=== PATIENT | female | born 1975 | race Caucasian/White ===

== ENCOUNTER 2019-07-21 04:20 | Observation (INO) | payer OTHER ==
[2019-07-21] MEDS ORDERED: HYDROCODONE/APAP 5/325 MG TAB ONE (05:11)
[2019-07-21] MEDS ORDERED: KETOROLAC 30 MG/ML INJ ONE (05:11)
[2019-07-21 07:45] LABS: Absolute Lymphocytes (CBC) 1.6 K/uL (0.7-4.9); Basophils % 0.8 % (0-1.3); Hematocrit 38.2 % (36.0-45.0); Lymphocytes % 12.8 % (15.3-44.8); MPV 9.2 fL (7.6-11.3); RBC Red Blood Cell Count 4.29 M/uL (3.86-4.86)
[2019-07-21 07:49] LABS: Protime INR 0.95
[2019-07-21 08:00] LABS: Albumin 3.7 g/dL (3.4-5.0); Bilirubin Total 0.2 mg/dL (0.2-1.0); Potassium 4.1 mmol/L (3.5-5.1); Protein, Total 7.6 g/dL (6.4-8.2)
--- NOTE | 2019-07-21 08:27 | RAD REPORT ---
EXAM DESCRIPTION: CT - Abdomen Pelvis W Contrast - 07/21/2019 8:12 am CLINICAL HISTORY: TRAUMA, fall with back and abdomen pain COMPARISON: Chest Abd Pelvis Wo Con dated 07/21/2019 TECHNIQUE: Biphasic, helical CT imaging of the abdomen and pelvis was performed following 100 ml non -ionic IV contrast. No oral contrast administered. All CT scans are performed using dose optimization technique as appropriate and may include automated exposure control or mA/KV adjustment according to patient size. FINDINGS: No suspicious findings in the lung bases. The liver, spleen, and pancreas show no suspicious findings. Gallbladder and biliary tree are also wi thout suspicious finding. Between the diaphragm and the posterior right lateral margin of the liver there is a 6 x 3 centimeter low-density collection. This has mild mass effect on the liver. Calcification is seen along the rim of this low-density collection along the medial and inferior margin. This is homogeneous low-attenuat ion. No enhancement component is seen. This low-density mass appears more associated with the diaphra gm in the liver parenchyma. This may be an old seroma or hematoma. There is some questionable deformi ty to the anterior margins of the right tenth and eleventh ribs in proximity to this collection. Jarod elation is needed with any history of old rib rib injury in this region. A malignant or aggressive ma ss is not suspected. Symmetric renal function is seen with no hydronephrosis or suspicious renal mass. No pyelonephritis o r acute parenchymal process. No bladder abnormalities. No adrenal abnormalities. Uterus and ovaries s how no suspicious findings. No dilated bowel loops or bowel wall thickening. No free air, free fluid or inflammatory stranding. No hernia, mass or bulky lymphadenopathy. No suspicious bony findings. IMPRESSION: A 6 x 3 centimeter low-density mass is present between the diaphragm in the posterolater al margin of the liver. An old hematoma or seroma is the favored etiology. A malignant or aggressive process is not suspected. Abscess is not suspected. There is some subtle deformity to the anterior margin of the right tenth and eleventh ribs that may b e old fracture change. This would support a seroma/hematoma etiology. Correlation can be made with hi story. No other acute or significant findings on this examination. Long-term significance of the low-density mass near the liver doubtful. Correlation can be made with any prior imaging studies. Repeat imaging in 4-6 months could be performed if there are ongoing clini pooja concerns.
--- NOTE | 2019-07-21 10:27 | EDPHYS ---
Physician Documentation [facility] Name: Enma Clark Age: 44 yrs Sex: Female : 1975 Arrival Date: 07/21/2019 Time: 04:22 Bed 3 Private MD: ED Physician Scott Mead HPI: 07/20 05:57 This 44 yrs old Female presents to ER via Wheelchair with complaints of Fall tw4 Injury, Back Pain. 05:57 Details of fall: The patient fell from an upright position, while standing. Onset: The tw4 symptoms/episode began/occurred today. Associated injuries: The patient sustained upper back injury, decreased range of motion, pain, injury to the low back. Severity of symptoms: At their worst the symptoms were moderate, in the emergency department the symptoms are unchanged. 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 - Social history:: Smoking status: unknown Patient uses alcohol, Patient/guardian denies using street drugs. - Immunization history: Last tetanus immunization: unknown. ROS: 05:57 Constitutional: Negative for fever, chills, and weight loss, Eyes: Negative for injury, tw4 pain, redness, and discharge, Cardiovascular: Negative for chest pain, palpitations, and edema, Respiratory: Negative for shortness of breath, cough, wheezing, and pleuritic chest pain, Abdomen/GI: Negative for abdominal pain, nausea, vomiting, diarrhea, and constipation, MS/Extremity: Negative for injury and deformity, Skin: Negative for injury, rash, and discoloration, Neuro: Negative for headache, weakness, numbness, tingling, and seizure. 05:57 Back: Positive for injury or acute deformity, decreased range of motion, pain at rest, pain with movement, Negative for radiated pain. Exam: 05:57 Constitutional: This is a well developed, well nourished patient who is awake, alert, tw4 and in no acute distress. Head/Face: Normocephalic, atraumatic. Chest/axilla: Normal chest wall appearance and motion. Nontender with no deformity. No lesions are appreciated. Cardiovascular: Regular rate and rhythm with a normal S1 and S2. No gallops, murmurs, or rubs. Normal PMI, no JVD. No pulse deficits. Respiratory: Lungs have equal breath sounds bilaterally, clear to auscultation and percussion. No rales, rhonchi or wheezes noted. No increased work of breathing, no retractions or nasal flaring. Abdomen/GI: Soft, non-tender, with normal bowel sounds. No distension or tympany. No guarding or rebound. No evidence of tenderness throughout. MS/ Extremity: Pulses equal, no cyanosis. Neurovascular intact. Full, normal range of motion. Neuro: Awake and alert, GCS 15, oriented to person, place, time, and situation. Cranial nerves II-XII grossly intact. Motor strength 5/5 in all extremities. Sensory grossly intact. Cerebellar exam normal. Normal gait. 05:57 Back: pain, that is moderate, ROM is normal, muscle spasm, is appreciated in the right mid back. Vital Signs: 04:35 BP 141 / 91; Pulse 135; Resp 20; Temp 99.5; Pulse Ox 98% ; Weight 68.04 kg; Height 5 rr5 ft. 6 in. (167.64 cm); Pain 10/10; 04:35 BP 125 / 81; Pulse 119; Resp 19; Pulse Ox 98% ; Pain 10/10; rr5 05:30 BP 116 / 82; Pulse 115; Resp 17; Pulse Ox 99% on R/A; rr5 07:00 BP 122 / 99; Pulse 105; Resp 19; Pulse Ox 99% ; rr5 08:00 BP 128 / 85; Pulse 115; Resp 16; Pulse Ox 100% ; bp 09:00 BP 121 / 88; Pulse 116; Resp 17; Pulse Ox 100% ; bp 09:55 BP 122 / 78; Pulse 114; Resp 18; Pulse Ox 100% ; bp 04:35 Body Mass Index 24.21 (68.04 kg, 167.64 cm) rr5 Allison Coma Score: 04:35 Eye Response: spontaneous(4). Verbal Response: oriented(5). Motor Response: obeys rr5 commands(6). Total: 15. 07:00 Eye Response: spontaneous(4). Verbal Response: oriented(5). Motor Response: obeys rr5 commands(6). Total: 15. Trauma Score (Adult): 04:35 Eye Response: spontaneous(1); Verbal Response: oriented(1); Motor Response: obeys rr5 commands(2); Systolic BP: > 89 mm Hg(4); Respiratory Rate: 10 to 29 per min(4); Srini Score: 15; Trauma Score: 12 07:00 Eye Response: spontaneous(1); Verbal Response: oriented(1); Motor Response: obeys rr5 commands(2); Systolic BP: > 89 mm Hg(4); Respiratory Rate: 10 to 29 per min(4); Srini Score: 15; Trauma Score: 12 MDM: 04:40 Patient medically screened. tw4 10:25 Differential diagnosis: abrasion, contusion, fracture. Data reviewed: vital signs, rn nurses notes, lab test result(s), radiologic studies, CT scan, and as a result, I will admit patient. Counseling: I had a detailed discussion with the patient and/or guardian regarding: the historical points, exam findings, and any diagnostic results supporting the discharge/admit diagnosis, lab results, radiology results, the need for further work-up and treatment in the hospital. Response to treatment: the patient's symptoms have mildly improved after treatment, and as a result, I will admit patient. ED course: Will admit to Dr. Serrato, consulted with him, unclear if new or old, but patient cannot recall recent trauma to explain this and has focal tenderness at that site. . 07/20 06:51 Order name: CBC with Diff tw4 07/20 06:51 Order name: PT-INR; Complete Time: 08:25 tw4 07/20 06:51 Order name: Ptt, Activated; Complete Time: 08:25 tw4 07/20 06:51 Order name: CMP; Complete Time: 08:25 tw4 07/20 06:52 Order name: CBC with Automated Diff; Complete Time: 08:25 EDMS 07/20 05:22 Order name: Chest Abd Pelvis Wo Con EDMS 07/20 06:51 Order name: CT Abd/Pelvis - IV Contrast Only; Complete Time: 08:48 tw4 07/20 07:22 Order name: Labs - recollect needed: recollect everything; Complete Time: 07:46 bd Administered Medications: 05:18 Not Given (Patient Refused): [place] 5 mg-325 mg 1 tabs PO once; RASS on ADMIN: Combtv4, ao Very Agttd3, Agttd2, Rstlss1, AlertClm0, Drwsy-1, Lt Sdtn-2, Mod Sdtn-3, Dp Sdtn-4, UnArsble-5 05:19 Not Given (Patient Refused): TORadol 30 mg IM once ao Disposition: 07/21/19 10:27 Hospitalization ordered by Danilo Serrato for Observation. Preliminary diagnosis is Intraperitoneal hematoma. - Bed requested for Telemetry/MedSurg (observation). - Status is Observation. jl7 - Condition is Stable. - Problem is new. - Symptoms have improved. Signatures: Dispatcher [employer] EDMS Rachel Castorena Diana, RN RN dw Scott Mead MD MD rn Ortiz, Alex, RN RN Barbara Ornelas RN RN jl7 Alphonse Coelho MD MD tw4 Justyn Sandoval RN RN rr5 Corrections: (The following items were deleted from the chart) 05:22 05:16 Thorax Wo Con+CT.RAD.BRZ ordered. EDMS EDMS 05:28 05:17 Abdomen Pelvis Wo Con+CT.RAD.BRZ ordered. EDMS EDMS 11:06 10:27 Hospitalization Ordered by Danilo Serrato MD for Observation. Preliminary diagnosis dw is Intraperitoneal hematoma. Bed requested for Telemetry/MedSurg (observation). Status is Observation. Condition is Stable. Problem is new. Symptoms have improved. rn 11:28 11:06 07/21/2019 10:27 Hospitalization Ordered by Danilo Serrato MD for Observation. jl7 Preliminary diagnosis is Intraperitoneal hematoma. Bed requested for Telemetry/MedSurg (observation). Status is Observation. Condition is Stable. Problem is new. Symptoms have improved. dw
--- NOTE | 2019-07-21 10:27 | ER ---
Nurse's Notes [facility] Name: Enma Clark Age: 44 yrs Sex: Female : 1975 Arrival Date: 07/21/2019 Time: 04:22 Bed 3 Private MD: Diagnosis: Intraperitoneal hematoma Presentation: 07/20 04:35 Chief complaint: Patient states: I came from shower while I was drying in the bathroom rr5 i fell down hit my back. denies LOC denies taking blood thinner. Coronavirus screen: The patient has NOT traveled to a country currently being monitored by the [facility] within the last 14 days. Proceed with normal triage procedures. Ebola Screen: Patient negative for fever greater than or equal to 101.5 degrees Fahrenheit, and additional compatible Ebola Virus Disease symptoms Patient denies exposure to infectious person. Patient denies travel to an Ebola-affected area in the 21 days before illness onset. Initial Sepsis Screen: Does the patient meet any 2 criteria? No. Patient's initial sepsis screen is negative. Does the patient have a suspected source of infection? No. Patient's initial sepsis screen is negative. Risk Assessment: Do you want to hurt yourself or someone else? Patient reports no desire to harm self or others. Note Positive ETOH as stated by the patient. Onset of symptoms was July 21, 2019. 04:35 Method Of Arrival: Wheelchair rr5 04:35 Acuity: SILVERIO 3 rr5 04:35 Care prior to arrival: None. Mechanism of Injury: Fall from standing position. Trauma rr5 event details: Injury occurred in the [facility], Injury occurred: at home. Injury occurred: July 21, 2019. 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 - Social history:: Smoking status: unknown Patient uses alcohol, Patient/guardian denies using street drugs. - Immunization history: Last tetanus immunization: unknown. Screenin:39 Abuse screen: Denies threats or abuse. Denies injuries from another. Nutritional rr5 screening: No deficits noted. Tuberculosis screening: No symptoms or risk factors identified. Fall Risk Fall in past 12 months (25 points). Gait- Impaired (20 pts.). Total Hussein Fall Scale indicates High Risk Score (45 or more points). Fall prevention measures have been instituted. Side Rails Up X 2 Placed Close to Nursing Station Frequent Obs/Assessments Occuring Family Present and informed to notify staff if the need to leave the bedside As available patient and family educated on Fall Prevention Program and Strategies. Primary Survey: 04:35 NO uncontrolled hemorrhage observed. Breathing/Chest: Respiratory pattern: regular, rr5 Respiratory effort: spontaneous, unlabored, Breath sounds: clear, bilaterally. Chest inspection: symmetrical rise and fall of the chest. 04:35 A: The patient is alert. Airway: patent, No supplemental oxygen in use on arrival. Oral rr5 cavity: clear, gag reflex present, Trachea midline. Circulation: Heart tones present. Pulses: palpable right radial artery and left radial artery. Skin color: pink, Skin temperature: warm, dry. Disability Alert. Exposure/Environment: There is no evidence of uncontrolled external bleeding. Obvious injury(ies) are noted at this time: complaining of right lower back pain A warming method has been applied: A warm blanket has been provided to the patient. 05:35 Reassessment Airway Airway Patent Breathing/Chest Respiratory pattern Regular rr5 Respiratory effort Spontaneous Unlabored Breath sounds Clear Chest inspection Symmetrical Circulation Heart tones Present Pulses Palpable Color [place] Temperature Warm Dry Disability Alert. Secondary Survey: 04:35 HEENT: No deficits noted. Gastrointestinal: No deficits noted. : No signs and/or rr5 symptoms were reported regarding the genitourinary system. Musculoskeletal: Capillary refill < 3 seconds, Reports pain in right low back. Assessment: 04:39 General: Appears in no apparent distress. uncomfortable, Behavior is calm, cooperative, rr5 appropriate for age. Pain: Complains of pain in right low back Pain does not radiate. Pain currently is 10 out of 10 on a pain scale. Quality of pain is described as aching, Pain began suddenly, Is continuous. Neuro: Level of Consciousness is awake, alert, obeys commands, Oriented to person, place, time, situation, Appropriate for age Denies LOC. Cardiovascular: Capillary refill < 3 seconds Patient's skin is warm and dry. Respiratory: Airway is patent Respiratory effort is even, unlabored, Respiratory pattern is regular, symmetrical. GI: No signs and/or symptoms were reported involving the gastrointestinal system. : No signs and/or symptoms were reported regarding the genitourinary system. EENT: No signs and/or symptoms were reported regarding the EENT system. Derm: Skin is intact, is healthy with good turgor, Skin temperature is warm. Musculoskeletal: Circulation, motion, and sensation intact. Capillary refill < 3 seconds, Reports pain in right low back. 05:30 Reassessment: Patient appears in no apparent distress at this time. patient refused for rr5 pain medicine, she said it will makes her nauseated. 06:00 Reassessment: Patient appears in no apparent distress at this time. Patient and/or rr5 family updated on plan of care and expected duration. Pain level reassessed. Patient is alert, oriented x 3, equal unlabored respirations, skin warm/dry/pink. awaiting for CT result. 07:00 Reassessment: Patient appears in no apparent distress at this time. Patient is alert, rr5 oriented x 3, equal unlabored respirations, skin warm/dry/pink. review done ED provider order for CT with IV contrast. blood extraction done awaiting for blood result prior CT. 07:00 Reassessment: RECD REPORT FROM SHIRA SUTTON. 44YO WF P/W ETOH FALL AT HOME. POSSIBLE bp FLUID COLLECTION NOTED IN LOWER BACK, CT CONTRAST PENDING. PT NEURO INTACT AT THIS TIME. 07:27 Reassessment: LAB RECOLLECT NOTED AND COMPLETED. bp 08:02 Reassessment: PT TO CT. bp 09:54 Reassessment: ALL STUDIES RESULTED. AT B/S FOR RE-EVAL. bp Vital Signs: 04:35 BP 141 / 91; Pulse 135; Resp 20; Temp 99.5; Pulse Ox 98% ; Weight 68.04 kg; Height 5 rr5 ft. 6 in. (167.64 cm); Pain 10/10; 04:35 BP 125 / 81; Pulse 119; Resp 19; Pulse Ox 98% ; Pain 10/10; rr5 05:30 BP 116 / 82; Pulse 115; Resp 17; Pulse Ox 99% on R/A; rr5 07:00 BP 122 / 99; Pulse 105; Resp 19; Pulse Ox 99% ; rr5 08:00 BP 128 / 85; Pulse 115; Resp 16; Pulse Ox 100% ; bp 09:00 BP 121 / 88; Pulse 116; Resp 17; Pulse Ox 100% ; bp 09:55 BP 122 / 78; Pulse 114; Resp 18; Pulse Ox 100% ; bp 04:35 Body Mass Index 24.21 (68.04 kg, 167.64 cm) rr5 [place] Coma Score: 04:35 Eye Response: spontaneous(4). Verbal Response: oriented(5). Motor Response: obeys rr5 commands(6). Total: 15. 07:00 Eye Response: spontaneous(4). Verbal Response: oriented(5). Motor Response: obeys rr5 commands(6). Total: 15. Trauma Score (Adult): 04:35 Eye Response: spontaneous(1); Verbal Response: oriented(1); Motor Response: obeys rr5 commands(2); Systolic BP: > 89 mm Hg(4); Respiratory Rate: 10 to 29 per min(4); Srini Score: 15; Trauma Score: 12 07:00 Eye Response: spontaneous(1); Verbal Response: oriented(1); Motor Response: obeys rr5 commands(2); Systolic BP: > 89 mm Hg(4); Respiratory Rate: 10 to 29 per min(4); Srini Score: 15; Trauma Score: 12 ED Course: 04:22 Patient arrived in ED. cl3 04:34 Shira Sandoval, LESLEY is Primary Nurse. rr5 04:35 Arm band placed on right wrist. rr5 04:35 Patient maintains SpO2 saturation greater than 95% on room air. rr5 04:38 Triage completed. rr5 04:40 Alphonse Coelho MD is Attending Physician. tw4 04:40 Thermoregulation: warm blanket given to patient. rr5 04:41 Patient has correct armband on for positive identification. Placed in gown. Bed in low rr5 position. Call light in reach. Pulse ox on. NIBP on. 05:[address] back from [address]. 05:57 Chest Abd Pelvis Wo Con In Process Unspecified. EDMS 07:00 No provider procedures requiring assistance completed. Inserted saline lock: 20 gauge rr5 in right antecubital area, using aseptic technique. Blood collected. 07:26 Attending Physician role handed off by Alphonse Coelho MD rn 07:26 Scott Mead MD is Attending Physician. rn 07:27 Primary Nurse role handed off by Shira Sandoval RN bp 07:27 Obinna Ceballos RN is Primary Nurse. bp 08:13 CT Abd/Pelvis - IV Contrast Only In Process Unspecified. EDMS 10:26 Danilo Serrato MD is Hospitalizing Provider. rn 11:20 Patient admitted, IV remains in place. intact, No redness/swelling at site. jl7 Administered Medications: 05:18 Not Given (Patient Refused): [place] 5 mg-325 mg 1 tabs PO once; RASS on ADMIN: Combtv4, ao Very Agttd3, Agttd2, Rstlss1, AlertClm0, Drwsy-1, Lt Sdtn-2, Mod Sdtn-3, Dp Sdtn-4, UnArsble-5 05:19 Not Given (Patient Refused): TORadol 30 mg IM once ao Intake: 11:22 PO: 0ml; IV: 0ml; Tubes: 0ml (); Total: 0ml. jl7 Output: 11:22 Urine: 0ml; Gastric: 0ml; Stool: 0; EBL: 0ml; Drainage: 0ml; Other: 0; Total: 0ml. jl7 Outcome: 10:27 Decision to Hospitalize by Provider. rn 11:20 Admitted to Med/surg accompanied by tech, via wheelchair, room 212, with chart, Report jl7 called to LESLEY Bradford 11:20 Condition: stable 11:20 Discharge instructions given to patient, Instructed on the need for admit, Demonstrated understanding of instructions. 11:22 Patient's length of stay was not longer than 2 hours. jl7 11:28 Patient left the ED. jl7 Signatures: Dispatcher [employer] EDMS Scott Mead MD MD rn Ortiz, Alex, RN RN ao Leal, Jahala, RN RN jl7 Peltier, Brian, RN RN bp Wadley, Terrence, MD MD tw4 Shira Sandoval RN RN rr5 Shanda Isbell cl3 Clementine Rock RN RN Corrections: (The following items were deleted from the chart) 05:18 05:18 [place] 5 mg-325 mg 1 tabs PO ao ao 05:56 04:35 Exposure/Environment: There is no evidence of uncontrolled external bleeding. rr5 Obvious injury(ies) are noted at this time: mild swellingback of the head A warming method has been applied: A warm blanket has been provided to the patient. rr5 06:00 04:39 Musculoskeletal: Circulation, motion, and sensation intact. Capillary refill < 3 rr5 seconds, rr5
--- NOTE | 2019-07-21 11:01 | RAD REPORT ---
EXAM DESCRIPTION: CT - Chest Abd Pelvis Wo Con - 07/21/2019 7:07 am CLINICAL HISTORY: PAIN COMPARISON: None Available. TECHNIQUE: CT of the chest, abdomen and pelvis without IV contrast. Suboptimal evaluation of the farshad id organs and vasculature due to lack of IV contrast. FINDINGS: Chest: Thyroid: No abnormalities of the visualized thyroid. Great Vessels: Great vessels have normal anatomic configuration. Thoracic Aorta: No abnormalities of the thoracic aorta identified. Pulmonary arteries: The main pulmonary artery is not dilated. Heart: No cardiomegaly, significant pericardial effusion, or coronary artery atherosclerosis Lymph Nodes: No enlarged mediastinal lymph nodes identified. Esophagus: No abnormalities of the esophagus identified Other: No additional findings. Lungs: No airspace opacities identified. Middle lobe calcified granuloma. Pleura: No pleural effusion or pneumothorax. Trachea/Airways: No abnormalities of the visualized trachea or airways. Abdomen: Liver: The liver has normal size and density. Posterior to the liver that is incompletely evaluated c ystic structure measuring 5.3 x 2.0 x 4.1 cm with partially calcified wall. No adjacent inflammatory change. Gallbladder: No calcified gallstones. Spleen, Pancreas, and Adrenal Glands: The spleen, pancreas, and adrenal glands are unremarkable. Kidneys: No hydronephrosis or obstructing ureteral calculus. Punctate bilateral nonobstructing righ t nephrolithiasis. Vasculature: The aorta and IVC have normal caliber and position. Stomach: The stomach and duodenum have normal course. Other: No free intraperitoneal air. No free fluid or lymphadenopathy. Minimal contusion in the po sterior right subcutaneous soft tissues. Pelvis: Bladder: Urinary bladder is unremarkable. Bowel: No dilated loops of large or small bowel. Appendix: Normal appendix. Pelvis: Uterus is not enlarged. Bones: Degenerative endplate spondylosis. IMPRESSION: 1. No acute inflammatory or obstructive process identified. 2. Posterior to liver there is a 5.3 cm fluid density structure with partially calcified ravi which may represent a remote seroma or hematoma. Other etiologies could produce a similar appearance. This is incompletely evaluated due to lack of IV contrast. Follow-up contrast enhanced MRI of the abdomen recommended for more complete characterization. 3. Punctate nonobstructing right nephrolithiasis. This exam was performed according to our departmental dose-optimization program, which includes autom ated exposure control, adjustment of the mA and/or kV according to patient size and/or use of iterati ve reconstruction technique. Electronically signed by: Nahid Hines 07/21/2019 6:28 AM CDT Due to temporary technical issues with the PACS/Fluency reporting system, reports are being signed by the in house radiologist as a courtesy to ensure prompt reporting. The interpreting radiologist is f ully responsible for the content of the report.
[2019-07-21] MEDS ORDERED: MORPHINE 4 MG/ML SYR IV PRN (11:44)
[2019-07-21] MEDS ORDERED: NA CHLORIDE 0.9% 1,000 ML IV SCH (11:44)
[2019-07-21] MEDS ORDERED: ONDANSETRON 4 MG/2 ML VIAL IV PRN (11:44)
[2019-07-21 11:57] VITALS: BMI 24.2
[2019-07-21 13:57] VITALS: O2SAT 98
[2019-07-21 14:12] LABS: Albumin 3.6 g/dL (3.4-5.0); Bilirubin Direct 0.1 mg/dL (0-0.2); Bilirubin Total 0.4 mg/dL (0.2-1.0); Protein, Total 7.4 g/dL (6.4-8.2)
[2019-07-21 15:21] VITALS: BP 136/73; TEMP 98.6
--- NOTE | 2019-07-21 23:56 | HP ---
Date of Admission: 07/21/2019 Brief History Of Present Illness: Patient is a 44-year-old female, who presents after a fa ll yesterday. She states she was up in the shower and slipped and fell down on her right side. She is unaware of any prior trauma to this right side of her abdomen or chest area, and does have signifi cant pain in the right lower abdomen and pelvic area, but no shortness of breath or any other associa silke complaints. There is no chest pain, otherwise. No shortness of breath. No dizziness, lighthead edness, or other similar complaints. Past Medical History: Significant for hypercoagulable state requested. She take anticoagulation, bu t noncompliant. Past Surgical History: She has had a . Allergies: TO CODEINE, WHICH CAUSES HALLUCINATIONS A CHILD, BUT SHE STATES SHE HAS NOT HAD IT SIN CE THEN AND DOES NOT BELIEVE IT A LEGITIMATE ISSUE AT THIS POINT. SHE DOES EXPLAIN THAT SHE HAS N AUSEA WITH OTHER PAIN MEDICATIONS. HER LMP WAS 07/11/2019. Review of Systems: Ten-point review of systems other than HPI, she denies syncope, lightheadedness, dizziness, any other traumatic issues. She was ambulatory. Social History: Denies smoking, alcohol, or recreational drug use. Physical Examination: Vital Signs: At the time of my examination, her BMI is 24.2. Her blood pressure 123/78, pulse is 11 4, respiratory rate 18, temperature 99.5. General: She is awake, alert, and oriented. Psychiatric: She is appropriately conversive. HEENT: She is normocephalic. Sclerae icteric. Mucous membranes are moist. Oropharynx clear. Neck: Supple. No JVD. Chest: Normal expansion and excursion. Cardiovascular: Regular rate and rhythm. Pulmonary: Clear to auscultation. Abdomen: Soft, nontender, nondistended. Pelvis: Stable. She has some mild right back and flank tenderness to palpation in the region of the 11 and 12 ribs. There is a very small less than 0.5 cm area of discoloration/bruising to the right superior sacral area, which has some mild point tenderness. Inspiratory test with incentive spiromet er. She was able to inhale over 3000 cc without any difficulty. Skin: Warm and dry. Laboratory Data: Laboratory exam reveals a white blood cell count 12.4, hemoglobin is 12.8, hematocr it of 38.2, platelet count is 343, neutrophils 82%. Her PT was 11.2. INR 0.95, PTT is 31.7. Sodium 140, potassium 4.1, chloride 108, carbon dioxide 23, BUN 12, creatinine 0.7, glucose is 103, calcium 8.5, total bilirubin 0.2, AST 15, ALT 22, alkaline phosphatase is 68. She had imaging performed, wh ich included a CT scan of the abdomen and pelvis with IV and p.o. contrast, officially read as 6 x 3 cm low-density mass present between the diaphragm and a posterolateral margin of the liver. No hemat della or seroma, favored etiology of malignancy or inflammatory process suspected. Abscess is not susp ected. There is some subtle deformity of the anterior margin of the right 10th and 11th ribs, may be old fracture changes reported as from hematoma etiology correlation with history. No other acute or significant findings on this examination. Long-term significance of low-density mass at this level i doubtful, correlation is needed with the prior imaging studies. Repeat imaging in 4 to 6 months co uld be performed for ongoing clinical concerns. Assessment And Plan: This is a 44-year-old female status post fall with likely an old fracture of th e right rib/ribs. However, patient has no history for old fall, given the appearance of this, it see ms likely that is an acute on chronic injury to this area, likely due to previous trauma. However, i n the context of a fall, I have explained that we will recheck her hemoglobin. Patient is desiring s trongly to leave hospital and does not want to be present in the hospital and knows that it is absolu tely necessary by her report, given the fact that she is ambulatory, her pain is well controlled with out any pain medication as she has refused pain medication at this point. She seems to be a reasonab le candidate to go home and therefore I will recheck her hemoglobin, if this is stable, I have explai inessa the risks, benefits, alternatives of going home including the possibility that she will get the w orsening symptoms and to return to the ER with the above-stated issues or any new issues. She agrees to proceed as indicated. AMELIE/AMITA Voice ID: [id number]
== END 2019-07-21 15:12 | disposition home or self-care (01) ==
LOC: ER 04:20 → ERHOLD 10:58 → 2ND 11:22
PROVIDERS: ADMIT Surgery; ATTEND Surgery
DX: S36.81XA Injury of peritoneum, initial encounter (principal); M54.5 Low back pain; W18.2XXA Fall in (into) shower or empty bathtub, initial encounter; N20.0 Calculus of kidney; Z79.01 Long term (current) use of anticoagulants; Z91.14 Patient's other noncompliance with medication regimen
CPT/HCPCS: 85025; 36415; 85610; 80076; 85730; 85018; 80053; 71250; 74176; 74177; 99285; Q9967; J7030; G0378 ×2; 74178

== ENCOUNTER 2024-12-22 16:26 | Emergency (ER) | payer OTHER ==
--- OUTSIDE RECORDS SUMMARY | 2024-12-22 16:29 | XMS REPORT | Continuity of Care Document ---
Author Name Unknown Address [address] [place] [address] Organization [facility] [place] Address [address] [place] [address] Care Team Providers Care Is Support Analyst Name Role Phone Unavailable Unavailable Unavailable Results Test Description Test Time Test Comments Results Resul t Comments Source SCR MAMM BILATERAL LEILA CAD DIGITAL 2022-06-13 12:11:32 Name: Enma : 1975 Sex: F - SCR MAMM BILATERAL LEILA CAD DIGITALBILATERAL FIRST EVER DIGITAL SCREENING MAMMOGRAM 3D/2D WITH CAD: 06/11/2022LINICAL: Asymptomatic. Digital breast tomosynthesis was performed in addition to routine CC and MLO views. Current mammographic images were evaluated by [employer] CAD (computer-aided detection) software. No prior exams were available for comparison. The tissue of both breasts is heterogeneously dense. This may lower the sensitivity of mammography. There is a benign intramammary node in the right breast. There also are benign calcifications in both breasts. No suspicious mass, architectural distortion, malignant type calcification, or lymph node abnormality detected. IMPRESSION: BENIGNThere is no mammographic evidence of malignancy. Resume annual screening mammography in one year. (06/12/2023) Norris Elaine M.D. et/flash:06/13/2022 12:11:32 Data Review Specialist: Julieta Maguire MM, [employer] Mammographyletter sent: BIRADS 1-2 Normal Mammogram BI-RADS: 2 Benign SCR MAMM BILATERAL LEILA CAD DIGITAL 2022-06-13 12:11:32 Name: Enma : 1975 Sex: F - SCR MAMM BILATERAL LEILA CAD DIGITALBILATERAL FIRST EVER DIGITAL SCREENING MAMMOGRAM 3D/2D WITH CAD: 06/11/2022LINICAL: Asymptomatic. Digital breast tomosynthesis was performed in addition to routine CC and MLO views. Current mammographic images were evaluated by [employer] CAD (computer-aided detection) software. No prior exams were available for comparison. The tissue of both breasts is heterogeneously dense. This may lower the sensitivity of mammography. There is a benign intramammary node in the right breast. There also are benign calcifications in both breasts. No suspicious mass, architectural distortion, malignant type calcification, or lymph node abnormality detected. IMPRESSION: BENIGNThere is no mammographic evidence of malignancy. Resume annual screening mammography in one year. (06/12/2023) Norris Elaine M.D. et/penrad:06/13/2022 12:11:32 Data Review Specialist: Julieta Maguire MM, [employer] Mammographyletter sent: BIRADS 1-2 Normal Mammogram BI-RADS: 2 Benign
--- NOTE | 2024-12-22 18:09 | RAD REPORT ---
EXAMINATION: XR RIGHT FOOT CLINICAL INDICATION: Female, 49 years old. Pain;Swelling TECHNIQUE: Multiple views of the right foot were obtained. COMPARISON: No prior exam. FINDINGS: Prominent bony spurring medial first metatarsal head. No fracture, dislocation or aggressi ve marrow pattern.
--- NOTE | 2024-12-22 18:42 | ER ---
Nurse's Notes [facility] Name: Enma Clark Age: 49 yrs Sex: Female : 1975 Arrival Date: 12/22/2024 Time: 16:26 Bed 11 Private MD: Diagnosis: Pain in right foot Presentation: 12/22 17:01 Acuity: SILVERIO 4 iw 17:07 Chief complaint: Patient states: right foot pain since Saturday. Coronavirus screen: iw At this time, the client does not indicate any symptoms associated with coronavirus-19. Ebola Screen: No symptoms or risks identified at this time. Initial Sepsis Screen: Does the patient meet any 2 criteria? No. Patient's initial sepsis screen is negative. Does the patient have a suspected source of infection? No. Patient's initial sepsis screen is negative. Risk Assessment: Do you want to hurt yourself or someone else? Patient reports no desire to harm self or others. Onset of symptoms was December 16, 2024. 17:07 Method Of Arrival: Ambulatory iw Historical: - Allergies: 17:04 Codeine; iw - Immunization history:: Adult Immunizations. - Infectious Disease History:: Denies. - Social history:: Smoking status: Patient denies any tobacco usage or history of. Screenin:42 [facility] ED Fall Risk Assessment (Adult) History of falling in the last 3 months, iw including since admission No falls in past 3 months (0 pts) Confusion or Disorientation No (0 pts) Intoxicated or Sedated No (0 pts) Impaired Gait No (0 pts) Mobility Assist Device Used No (0 pt) Altered Elimination No (0 pt) Score/Fall Risk Level 0 - 2 = Low Risk Oriented to surroundings, Maintained a safe environment. Abuse screen: Denies threats or abuse. Denies injuries from another. Nutritional screening: No deficits noted. Tuberculosis screening: No symptoms or risk factors identified. Assessment: 17:00 General: Appears in no apparent distress. Behavior is calm, cooperative. Pain: iw Complains of pain in right foot. Neuro: Level of Consciousness is awake, alert, obeys commands, Oriented to person, place, time, situation, Moves all extremities. Full function. Cardiovascular: Patient's skin is warm and dry. Respiratory: Respiratory effort is even, unlabored, Respiratory pattern is regular. Musculoskeletal: Range of motion:. Vital Signs: 17:02 BP 167 / 76; Pulse 95; Resp 16; Temp 97; Pulse Ox 100% ; Weight 79.38 kg; Height 5 ft. iw 6 in. ; 18:52 BP 142 / 72; Pulse 83; Resp 16; Pulse Ox 100% on R/A; dd2 17:02 Body Mass Index 28.25 (79.38 kg, 167.64 cm) iw ED Course: 16:30 Patient arrived in ED. cj3 16:30 Patsy Hays FNP-C is PHCP. kb 16:30 Marin Schwartz MD is Attending Physician. kb 16:30 PHCP role handed off by Patsy Hays FNP-C dr5 16:30 Lokesh Littlejohn FNP-C is PHCP. dr5 17:02 Triage completed. iw 17:09 Halley Dobson, RN is Primary Nurse. iw 18:03 Foot Right 3 View XRAY In Process Unspecified. EDMS 18:41 Jem Cruz MD is Referral Physician. dr5 18:42 No provider procedures requiring assistance completed. Patient did not have IV access iw during this emergency room visit. 18:42 Patient has correct armband on for positive identification. Provided Education on: . iw 18:52 Dressings:. Missael wrap to right foot. dd2 Administered Medications: No medications were administered Medication: 18:42 VIS not applicable for this client. iw Outcome: 18:41 Discharge ordered by . dr5 18:52 Discharged to home ambulatory, dd2 18:52 Condition: stable 18:52 Discharge instructions given to patient, Instructed on discharge instructions, follow up and referral plans. medication usage, Demonstrated understanding of instructions, follow-up care, medications, Prescriptions given X 1, 18:54 Patient left the ED. dd2 Signatures: Dispatcher [employer] EDMS Patsy Hays FNP-C FNP-Ckb Halley Dobson RN RN iw DANO JAMIL RN RN dd2 Lokesh Littlejohn FNP-C FNP-Cdr5 Milagros Ortiz cj3
--- NOTE | 2024-12-22 18:42 | EDPHYS ---
Physician Documentation [facility] Name: Enma Clark Age: 49 yrs Sex: Female : 1975 Arrival Date: 12/22/2024 Time: 16:26 Bed 11 Private MD: ED Physician Marin Schwartz HPI: 12/22 19:49 This 49 yrs old Female presents to ER via Ambulatory with complaints of Foot dr5 Injury - RT. 19:49 The patient presents with pain, that is acute, swelling. The complaints affect the dr5 dorsum of right foot. Onset: The symptoms/episode began/occurred 6 day(s) ago. Patient is a 49-year-old female with no past medical history coming in with right foot pain and swelling that 6 days ago. Patient reports that she thinks she may have stepped wrong injuring her right foot. Patient denies ankle pain. Patient reports taking anti-inflammatories with mild relief.. Historical: - Allergies: 17:04 Codeine; iw - Immunization history:: Adult Immunizations. - Infectious Disease History:: Denies. - Social history:: Smoking status: Patient denies any tobacco usage or history of. ROS: 19:49 Constitutional: as per hpi dr5 Exam: 19:49 Constitutional: This is a well developed, well nourished patient who is awake, alert, dr5 and in no acute distress. Head/Face: Normocephalic, atraumatic. Eyes: Pupils equal round and reactive to light, extra-ocular motions intact. Lids and lashes normal. Conjunctiva and sclera are non-icteric and not injected. Cornea within normal limits. Periorbital areas with no swelling, redness, or edema. Neck: Trachea midline, no thyromegaly or masses palpated, and no cervical lymphadenopathy. Supple, full range of motion without nuchal rigidity, or vertebral point tenderness. No Meningismus. Chest/axilla: Normal chest wall appearance and motion. Nontender with no deformity. No lesions are appreciated. Cardiovascular: Regular rate and rhythm with a normal S1 and S2. Normal PMI, no JVD. No pulse deficits. Respiratory: Lungs have equal breath sounds bilaterally, clear to auscultation. No rales, rhonchi or wheezes noted. No increased work of breathing, no retractions or nasal flaring. Abdomen/GI: Soft, non-tender, non-distended Back: No spinal tenderness. No costovertebral tenderness. Full range of motion. Skin: Warm, dry with normal turgor. Normal color with no rashes, no lesions, and no evidence of cellulitis. Neuro: Awake and alert, GCS 15, oriented to person, place, time, and situation. Cranial nerves II-XII grossly intact. Motor strength 5/5 in all extremities. Sensory grossly intact. Cerebellar exam normal. Normal gait. 19:49 Musculoskeletal/extremity: Extremities: grossly normal except: noted in the dorsum of right foot: swelling, tenderness, Swelling and tenderness to fourth metatarsal on top of foot. No redness., ROM: no acute changes, intact in all extremities, Circulation is intact in all extremities. Sensation intact. Weight bearing: able to fully bear weight, without difficulty, Tendon exam: specific tendon testing normal through active and passive range of motion Vital Signs: 17:02 BP 167 / 76; Pulse 95; Resp 16; Temp 97; Pulse Ox 100% ; Weight 79.38 kg; Height 5 ft. iw 6 in. ; 18:52 BP 142 / 72; Pulse 83; Resp 16; Pulse Ox 100% on R/A; dd2 17:02 Body Mass Index 28.25 (79.38 kg, 167.64 cm) iw MDM: 16:30 Medical Screening Exam initiated dr5 19:49 Differential diagnosis: dislocation, open fracture, closed fracture, contusion, dr5 abrasion, tendonitis. Data reviewed: vital signs, nurses notes, radiologic studies, plain films. Consideration of Admission/Observation Escalation of care including admission/observation considered. Admission considered patient found to have open fracture. I considered the following discharge prescriptions or medication management in the emergency department. Independent interpretation of the following test(s) in the Emergency Department X-Ray: My interpretation is Independent interpretation of x-ray does not reveal a fracture.. Care significantly affected by the following Social Determinants of Health:. Counseling: I had a detailed discussion with the patient and/or guardian regarding the historical points, exam findings, and any diagnostic results supporting the discharge/admit diagnosis, the presence of at least one elevated blood pressure reading (>120/80) during this emergency department visit, radiology results, the need for outpatient follow up, for definitive care, a orthopedic surgeon. Special discussion: I have referred the patient to see his PCP for further evaluation of high blood pressure. I discussed with the patient/guardian in detail that at this point there is no indication for admission to the hospital. It is understood, however, that if the symptoms persist or worsen the patient needs to return immediately for re-evaluation. Based on the history and exam findings, there is no indication for further emergent testing or inpatient evaluation. I discussed with the patient/guardian the need to see the orthopedic surgeon for further evaluation of the symptoms. ED course: CD made for patient to take with her. Report printed out as well. Recommended Missael wrap, ibuprofen, and resting right foot to help with pain. Swelling likely due to patient being on her feet all day and has not rested since the injury occurred. Will have patient wear Missael wrap while working. All questions answered. Strict ER precautions given. Recommend patient follow-up with orthopedic.. 12/22 17:00 Order name: Foot Right 3 View XRAY; Complete Time: 18:12 dr5 12/22 18:39 Order name: Missael Wrap; Complete Time: 18:45 dr5 Administered Medications: No medications were administered Disposition Summary: 12/22/24 18:41 Discharge Ordered Notes: Location: Home dr5 Condition: Stable dr5 Diagnosis - Pain in right foot dr5 Followup: dr5 - With: Emergency Department - When: As needed - Reason: Worsening of condition Followup: dr5 - With: Jem Cruz MD - When: 1 - 2 days - Reason: Recheck today's complaints, Continuance of care, Re-evaluation by your physician Discharge Instructions: - Discharge Summary Sheet dr5 - RICE Therapy for Routine Care of Injuries dr5 - Foot Pain dr5 Forms: - Medication Reconciliation Form dr5 - Patient Portal Instructions dr5 - Leadership Thank You Letter dr5 Prescriptions: - indomethacin 25 mg Oral capsule - take 1 capsule ORAL route 2 times per day As needed administer with food or dr5 milk; 30 capsule; Refills: 0, Product Selection Permitted Signatures: Dispatcher [employer] Halley Foy RN RN iw Rhodes, Dustin, ROEL-C ASSOCIATE ACCOUNT MANAGER-Cdr5
[2024-12-22 22:31] VITALS: TEMP 97; O2SAT 100
[2024-12-22 22:37] VITALS: BP 142/72
== END 2024-12-22 18:54 | disposition home or self-care (01) ==
LOC: ER 16:26
DX: M79.671 Pain in right foot (principal)
CPT/HCPCS: 99283